=== PATIENT | male | born 1965 | race African-American/Black ===

== ENCOUNTER 2019-09-11 08:22 | Outpatient (CLI) | payer MEDICARE, SELFPAY ==
--- NOTE | 2019-09-20 03:21 | SLEEP_ITS ---
DATE OF STUDY: 09/11/2019 ORDERING PHYSICIAN: Jame Kingston M.D. REASON FOR THIS STUDY: Witnessed apneas, poor quality sleep. HISTORY: The patient is a 54-year-old man, who is 6 feet 3 inches tall, weighing 265 pounds with a body mass index of 33.1. He has been witnessed to have apneic episodes while sleeping. He constantly snores loudly enough that others complain about it. He occasionally awakens at night with heartburn, belching, coughing, and feeling short of breath. He rarely has trouble sleeping with a cold. He occasionally wakes up gasping for breath at night. He constantly sweats excessively at night, frequently has pounding heartbeats at night. He occasionally falls asleep during the day occasionally involuntarily, rarely while driving and rarely with physical effort. He does not have loss of muscle tone with strong emotion. He does not have daytime dysfunction due to his excessive sleepiness, but he is retired. He occasionally has vivid dreamlike scenes upon awakening or falling asleep. He is rarely afraid to go to sleep and rarely has nightmares. He occasionally remembers his dreams. He constantly has racing thoughts. He frequently feels sad or depressed. He occasionally has anxiety. He rarely has muscular tension. He constantly notices parts of his body jerking. He rarely kicks at night. He occasionally has crawly achy feelings in his legs. He rarely has leg pain at night. He never has morning jaw pain. He rarely grinds his teeth at night. He rarely is bothered by pain during the day where he awakened with pain at night. He rarely wakes up feeling stiff in the morning, rarely has sore achy muscles in the morning and occasionally has pain in the neck and spine joints. He has memory problems, shyness, difficulty concentrating, depression, nightmares, sexual problems, palpitations, poor appetite and cannot make decisions. He takes antacids regularly. He goes to bed at 1:30 a.m., is not sure how long it takes him to fall asleep, typically waking 2-3 times at night, staying awake for an hour. During this time, he will lie in the bed, try to go back to sleep. He gets up in the morning at 7 a.m. He does watch television before falling asleep. He does not take naps. A short nap can be refreshing. After an average night of sleep most of the time, he feels good in the morning. He feels better in the evening compared to the morning. MEDICAL COMORBIDITIES: Gastroesophageal reflux disease, hypertension, diabetes, seasonal allergies, nephrolithiasis, osteoarthritis, knee and shoulder replacement. MEDICATIONS: 1. Metformin 500 mg b.i.d. 2. Ranitidine 150 mg b.i.d. 3. Atenolol 50 mg twice a day. 4. Losartan 100 mg a day. 5. Amlodipine 5 mg a day. 6. Rosuvastatin 5 mg a day for lipids. HABITS: In the survey, he did not complete information regarding tobacco use, caffeine use, or alcohol use. DESCRIPTION OF THE STUDY: On the [place] Sleepiness Scale, his score is 13. This was conducted as an unattended portable home sleep test using 4 channel monitoring including respiratory effort channel, snoring channel, oxygen saturation channel, and heart rate channel. The study was scored using [facility] guidelines. Duration was 6 hours 56 minute. The apnea-hypopnea index is 17. Oxygen desaturation index 16.3. Lowest desaturation was 69%. His average saturation during the study was 94%. He had 51 apneas. The majority 73% of these or 37 apneas were central, 27% or 14 apneas were obstructive. He had 69 hypopneas. He had 695 snoring events and desaturated 109 times spending 27 minutes or 7% of the study below 88% saturation. Heart rate ranged from 53 to 103. IMPRESSION: 1. This home sleep test shows evidence of at least moderate obstructive sleep apnea G47.33 with a fair
== END 2019-09-11 08:23 | disposition home or self-care (01) ==
LOC: ANHCSM 08:25
PROVIDERS: PCP Family Medicine; Visit Provider Family Medicine
DX: G47.10 Hypersomnia, unspecified (principal); G47.33 Obstructive sleep apnea (adult) (pediatric); Z72.821 Inadequate sleep hygiene; E11.9 Type 2 diabetes mellitus without complications; I10 Essential (primary) hypertension; E78.5 Hyperlipidemia, unspecified; M19.90 Unspecified osteoarthritis, unspecified site
CPT/HCPCS: 95806